=== PATIENT | female | born 1955 | race Caucasian/White ===

== ENCOUNTER → 2020-07-17 11:55 | Outpatient (BNVA) | payer MEDICARE, SELFPAY | PROVIDERS: Family Provider Family Medicine; Visit Provider Nurse Practitioner Family | DX: I10 Essential (primary) hypertension (principal); E78.5 Hyperlipidemia, unspecified; E55.9 Vitamin D deficiency, unspecified; Z79.899 Other long term (current) drug therapy | CPT/HCPCS: 80053; 80061; 81003; 82306; 83036; 84443; 85025 ==

== ENCOUNTER → 2021-12-13 08:32 | Outpatient (BNVA) | payer MEDICARE, SELFPAY | PROVIDERS: Family Provider Family Medicine; PCP Nurse Practitioner; Visit Provider Nurse Practitioner | DX: I10 Essential (primary) hypertension (principal); E78.5 Hyperlipidemia, unspecified | CPT/HCPCS: 80053; 80061; 84443; 85025 ==

== ENCOUNTER 2021-12-16 13:24 | Outpatient (CLI) | payer MEDICARE, SELFPAY ==
--- NOTE | 2021-12-16 13:29 | MM_ITS ---
WS: [id number] Bilateral screening 3D tomosynthesis digital mammogram, 12/16/2021 Clinical Data: Z12.39 - Encounter for other screening for malignant neop... Comparison: 09/14/2016, 01/07/2014, 08/02/2012, 04/14/2011, 02/22/2010, 02/04/2009, 08/02/2007. 06/16/2006. Findings: The breast parenchymal pattern shows fat replacement. No spiculated masses or clustered calcification s are seen. There are no secondary signs of carcinoma. MM/[place] [id number] Impression: 1. Negative bilateral mammogram unchanged. 2. Recommend annual screening mammograms. BIRADS: 1-Negative FOLLOW UP: 1 Year Follow-up The CAD price checker was used.
== END 2021-12-16 13:25 | disposition home or self-care (01) ==
LOC: RAD 13:25
PROVIDERS: Family Provider Family Medicine; PCP Nurse Practitioner; Visit Provider Nurse Practitioner
DX: Z12.31 Encounter for screening mammogram for malignant neoplasm of breast (principal)
CPT/HCPCS: 77063; 77067

== ENCOUNTER → 2021-12-27 10:41 | Outpatient (BNVA) | payer MEDICARE, SELFPAY | PROVIDERS: Family Provider Family Medicine; PCP Nurse Practitioner; Visit Provider Nurse Practitioner | DX: I10 Essential (primary) hypertension (principal) | CPT/HCPCS: 80053 ==

== ENCOUNTER 2023-01-14 23:03 | Emergency (ER) | payer MEDICARE, SELFPAY ==
[2023-01-14 23:05] VITALS: BP 152/64; PULSE 67; RESP 20; TEMP 37.1; O2SAT 95; BMI 32.9
--- NOTE | 2023-01-14 23:17 | ED_ITS ---
HPI - Back Pain/Injury General: Chief Complaint: Back Pain/Injury Stated Complaint: BACK PAIN Time Seen by Provider: 01/14/23 23:13 Source: patient and EMS Mode of arrival: EMS Limitations: no limitations History of Present Illness: 67-year-old female states that she is on a long car ride twice this week and states she went and picked up her grandchildren at [employer] and rode in a car started having some left back pain she states that today they drove and passed [place] she been in the car for 6 hours now having severe left lower back pain. She states she feels like she having a muscle spasm is much worse with movement and trying to walk states improved with laying flat she denies any radiation of pain denies any midline pain denies any injuries. 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 Patient is under the care of [facility] MRI ordered by provider RICK Hernandez Social History Smoking and tobacco status: never smoked Second hand smoke exposure: No Smoking risk assessment/counseling performed?: No Alcohol intake: never Desire information about alcohol rehabilitation?: No Counseling given: No Substance/Drug Use: never Desire information about substance/drug rehabilitation?: No Counseling given: No Physical Exam Const: COMMON NORMALS: no acute distress, patient oriented x3 and healthy appearing HENMT: COMMON NORMALS: normocephalic and atraumatic HEAD & SCALP: normocephalic and atraumatic Neck/C-Spine: COMMON NORMALS: full ROM and supple Chest: COMMONS NORMALS: normal inspection of the chest and normal palpation of entire chest wall Resp: COMMON NORMALS: normal respiratory effort, No retractions, No use of accessory muscles and clear to auscultation bilaterally AUSCULTATION: clear to auscultation bilaterally Cardio: COMMON NORMALS: regular rate, regular rhythm and No murmurs present (Cardio) RATE: regular rate RHYTHM: regular rhythm GI: COMMON NORMALS: Normal to inspection, nondistended, normoactive bowel sounds present, Soft to palpation, non-tender and no masses PALPATION: Yes Soft to palpation Back/Pelvis: OTHER: Tender to the left lower lumbar no midline tenderness she has pain with range of motion of her left leg distal pulses sensation intact Extremity: COMMON NORMALS: normal to inspection and full ROM Neuro: COMMON NORMALS: patient oriented x3, moves all extremities and no focal motor deficits Psych: COMMON NORMALS: mental status grossly normal, Normal thought process present and cooperative THOUGHT PROCESS: Normal thought process present Skin: COMMON NORMALS: no rashes or lesions noted and no wounds GENERAL SKIN EXAM: no rashes or lesions noted Course Vital Signs: Vital signs: Vital Signs Temperature 98.7 F 01/14/23 23:05 Pulse Rate 65 01/14/23 23:43 Respiratory Rate 18 01/14/23 23:43 Blood Pressure 132/69 01/14/23 23:43 Pulse Oximetry 96 01/14/23 23:43 Oxygen Delivery Me thod Room Air 01/14/23 23:43 MDM - Back Pain/Injury Medical Decision Making Patient presents here with back pain likely muscular in nature she has no midline pain did give her steroids pain meds she feels improved we will prescribe her muscle relaxants Naprosyn and hydrocodone for home she is to follow-up with PCP and return if worsening she understands agrees to plan. Medical Records I reviewed the patient's medical records. Labs I reviewed the patient's lab results. Discharge Plan Discharge Patient Disposition: Home Clinical Impression: Low back pain Condition: Stable Prescriptions: New hydrocodone-acetaminophen 5-325 mg tablet 1 tab PO Q6H PRN (Reason: pain) Qty: 14 0RF methocarbamol 750 mg tablet 750 mg PO Q6H PRN (Reason: spasms) Qty: 20 0RF Naprosyn 500 mg tablet 500 mg PO BID PRN (Reason: pain) Qty: 20 0RF No Action triamcinolone acetonide 0.1 % cream 1 applic topical DAILY clobetasol 0.05 % ointment 1 applic topical BID estradiol 0.01 % (0.1 mg/gram) cream 1 appful vaginal DAILY Rx Instructions: for 14 days mometasone 0.1 % solution 1 applic topical DAILY Qty: 60 3RF Rx Instructions: apply a few drops to scalp daily as needed for itch ketoconazole 2 % cream 1 applic topical BID Qty: 30 2RF Rx Instructions: To pink scaly areas in skin fold twice daily for 4 weeks to replace clotrimazole losartan 25 mg tablet See Rx Instructions .ROUTE .COMPLEX Qty: 30 0RF Dose Instruction: TAKE 1 TABLET BY MOUTH DAILY Rx Instructions: TAKE 1 TABLET BY MOUTH DAILY Discharge Orders: Discharge ED (Routine); Ordered 01/14/23 Ordered By: Feng Klein Referrals: Sadia Deras FNP [Primary Care Provider] - 1-3 days Discharge Diet: Advance as tolerated Discharge Activity: Resume usual activity Patient Instructions: Acute Low Back Pain (ED), Lower Back Exercises (ED), Opioid Safety Coding Level of Care Code ED Float Remover for Irene Martell
[2023-01-14] MEDS: HYDROmorphone 1 mg/mL INJ 1 mL 0.5 MG IVP (23:38)
[2023-01-14] MEDS: dexamethasone 10 mg/mL INJ IVP (23:38)
[2023-01-14] MEDS: ketorolac 30 mg/mL INJ 15 MG IVP (23:40)
[2023-01-14 23:43] VITALS: BP 132/69; PULSE 65; RESP 18; O2SAT 96
[2023-01-15 01:25] VITALS: BP 134/61; PULSE 68; RESP 16; O2SAT 97
== END 2023-01-15 00:41 | disposition home or self-care (01) ==
PROVIDERS: Emergency Provider Emergency Medicine; PCP Nurse Practitioner
DX: M54.50 Low back pain, unspecified (principal)
CPT/HCPCS: 96374; 96375; 99284; J1100; J1170; J1885

== ENCOUNTER 2023-04-08 13:27 | Emergency (ER) | payer MEDICARE, SELFPAY ==
[2023-04-08 13:45] VITALS: BP 194/83; PULSE 81; RESP 18; O2SAT 98
--- NOTE | 2023-04-08 14:03 | W.ED.BACK ---
HPI - Back Pain/Injury General: Chief Complaint: Back Pain/Injury Stated Complaint: back pain Time Seen by Provider: 04/08/23 13:49 History of Present Illness: Patient is a 67-year-old female with a past medical history significant for bradycardia, bronchitis, coronary artery disease, dizziness, hyperlipidemia, hypertension, and meningioma who presents to the emergency department for evaluation of left lumbar back pain. Patient reports that she has had intermittent lumbar back pain for approximately 3 months. Patient states that last night she had an exacerbation of her lumbar back pain. She currently rates her pain as a 9 out of 10 in severity that she describes as a sharp/stabbing sensation. Patient denies any trauma or event that could have elicited her symptoms. Patient reports that the pain is localized without radiation. Patient reports that she has hydrocodone and methocarbamol at home for management of symptoms. Patient reports that she took these medications with little relief of symptoms. She denies any numbness or tingling in her bilateral lower extremities, saddle anesthesia, fever, chills, history of IV drug abuse, or bowel or bladder incontinence. Patient does endorse mild dysuria but she denies hematuria. She denies abdominal pain, chest pain, shortness of breath, lightheadedness, dizziness, nausea, vomiting, constipation, diarrhea, melena, hematochezia, or any other associated symptoms. No other complaints at this time. Associated symptoms: Reports dysuria; Deny abdominal pain, chills, fever(s), nausea, syncope or vomiting Review of Systems General: Reports: 10 or more systems reviewed and unremarkable except in HPI and below Const: Denies: fever(s), chills, body aches or diaphoresis Eyes: Denies: change in vision or blurry vision ENMT: Denies: throat pain, ear or mastoid pain or nasal congestion Card: Denies: chest pain, palpitations, irregular heart rhythm, lightheadedness or syncope Resp: Denies: dyspnea, productive cough, non-productive cough or wheezing GI: Denies: abdominal pain, nausea or vomiting : Reports: dysuria; Denies: flank pain, difficulty voiding or urinary frequency Musc: Reports: back pain Skin/Breast: Denies: rash Neuro: Denies: numbness in extremities, weakness in extremities or dizziness Psych: Denies: anxiety or depression PFS ED PFSH: Medical History Bilateral carotid artery disease Bradycardia Bronchitis Coronary artery disease Dizziness Hyperlipidemia Hypertension Meningioma 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 Patient is under the care of [facility] MRI ordered by provider RICK Hernandez Social History Smoking and tobacco/nicotine status: never used tobacco/nicotine Second hand smoke exposure: No Alcohol intake: never Substance/Drug Use: never Physical Exam Const: COMMON NORMALS: no acute distress, patient oriented x3 and healthy appearing HENMT: COMMON NORMALS: normocephalic, atraumatic and oropharynx normal HEAD & SCALP: normocephalic and atraumatic Eye: COMMON NORMALS: Equal, round and reactive pupils present and EOMs intact bilaterally PUPIL: Yes Equal, round and reactive pupils present Neck/C-Spine: COMMON NORMALS: no JVD GENERAL: Yes normal visual inspection and Yes trachea midline Chest: COMMONS NORMALS: normal inspection of the chest Resp: COMMON NORMALS: normal respiratory effort, No retractions and No use of accessory muscles Cardio: COMMON NORMALS: no JVD, regular rate, regular rhythm, No gallops present (Cardio), No clicks present (Cardio), No murmurs present (Cardio), No rub (Cardio) and Peripheral pulses 2+ throughout RATE: regular rate RHYTHM: regular rhythm PERIPHERAL PULSES: Peripheral pulses 2+ throughout GI: COMMON NORMALS: Normal to inspection, nondistended, normoactive bowel sounds present, Soft to palpation and non-tender PALPATION: Yes Soft to palpation : BLADDER/KIDNEY EXAM: No CVA tenderness Back/Pelvis: GENERAL BACK: No CVA tenderness OTHER: Left lumbar back pain noted to palpation. No swelling, erythema, or ecchymosis appreciated to the affected area. No midline vertebral tenderness is noted to the thoracic or lumbar spine. No bony abnormalities or step-offs noted. Negative straight leg raise. Patient has full passive and active range of motion in the bilateral upper and lower extremities. Extremity: COMMON NORMALS: normal to inspection, full ROM and capillary refill normal Neuro: COMMON NORMALS: patient oriented x3 OTHER: Sensation intact in the bilateral upper and lower extremities. Course Vital Signs: Vital signs: Vital Signs Pulse Rate 81 04/08/23 13:45 Respiratory Rate 18 04/08/23 13:45 Blood Pressure 194/83 04/08/23 13:45 Pulse Oximetry 98 04/08/23 13:45 Oxygen Delivery Me thod Room Air 04/08/23 13:45 MDM - Back Pain/Injury Medical Decision Making Patient is a 67-year-old female with a past medical history significant for bradycardia, bronchitis, coronary artery disease, dizziness, hyperlipidemia, hypertension, and meningioma who presents to the emergency department for evaluation of left lumbar back pain. On physical examination patient is nontoxic and in no acute distress. Vital signs remained stable throughout the ED course. Patient is afebrile. Patient is neurovascularly intact. Patient denies saddle anesthesia, numbness or tingling in her bilateral lower extremities, bowel or bladder incontinence, fever, or history of IV drug abuse. X-ray of the lumbar back showed Chronic isthmic spondylolisthesis L5-S1 with secondary degenerative changes. No acute bony abnormalities. Urinalysis did show evidence of a urinary tract infection. Urine culture currently pending. Based off history and physical examination I do not believe the patient's symptoms are emergent and require further emergent evaluation at this time. Patient was given Toradol and Norflex in the emergency department for symptomatic relief. Patient stated improvement of symptoms after medication administration. See handouts of generalized instructions. A prescription of diclofenac Was sent to her pharmacy to be picked up. Take medication as prescribed. Do not take ibuprofen or other nonsteroidal anti-inflammatories while taking this medication. You are also noted to have a urinary tract infection. A prescription of ciprofloxacin was sent to your pharmacy be picked up. Take medication as prescribed. Avoid strenuous physical activity for the next several days that can exacerbate your symptoms. Call your primary care provider tomorrow with an update of your symptoms and to schedule appointment for further management/evaluation. Return to the emergency department for any rapid or worsening symptoms to include but not limited to numbness or tingling in your lower extremities, groin numbness, bowel or bladder incontinence, fever, or as needed. Patient stated understanding of all discharge instructions was agreeable to plan of care. Differential diagnosis includes but is not limited to cauda equina syndrome, discitis, spinal epidural abscess, lumbar back strain, lumbar back spasm, urinary tract infection Labs Radiology Impressions Lumbar Spine X-Ray 04/08/23 14:06 IMPRESSION: Chronic isthmic spondylolisthesis L5-S1 with secondary degenerative changes. No acute bony abnormalities. Laboratory Results Urine Color Yellow (Yellow) 04/08/23 14:49 Urine Appearance Sl hazy (CLEAR) A 04/08/23 14:49 Urine pH 5 (5-7) 04/08/23 14:49 Ur Specific [place] 1.020 (1.005-1.030) 04/08/23 14:49 Urine Protein Neg (Negative) 04/08/23 14:49 Urine Glucose (UA) Norm (Normal) 04/08/23 14:49 Urine Ketones Negative (Negative) 04/08/23 14:49 Urine Blood Neg (Negative) 04/08/23 14:49 Urine Nitrate Positive (Negative) H 04/08/23 14:49 Urine Bilirubin Neg (Negative) 04/08/23 14:49 Urine Urobilinogen Norm mg/dL (Negative) 04/08/23 14:49 Ur Leukocyte Esterase Negative (Negative) 04/08/23 14:49 Urine RBC None /hpf (0-2) 04/08/23 14:49 Urine WBC 5-10 /hpf (0-5) H 04/08/23 14:49 Ur Squamous Epith Cells Rare /hpf (0-5) 04/08/23 14:49 Amorphous Sediment Not Reportable 04/08/23 14:49 Urine Bacteria 3+ /hpf (NONE) H 04/08/23 14:49 All radiology interpretation(s) finalized by discharge Discharge Plan Discharge Patient Disposition: Home Clinical Impression: Acute UTI, Lumbar back pain Condition: Stable Prescriptions: New diclofenac sodium 75 mg tablet,delayed release (DR/EC) 75 mg PO BID 5 Days Qty: 10 0RF Cipro 500 mg tablet 500 mg PO Q12H 7 Days Qty: 14 0RF No Action clobetasol 0.05 % ointment 1 applic topical BID PRN (Reason: Rash) hydrocodone-acetaminophen 5-325 mg tablet 1 tab PO Q6H PRN (Reason: pain) Qty: 14 0RF methocarbamol 750 mg tablet 750 mg PO Q6H PRN (Reason: spasms) Qty: 20 0RF losartan 25 mg tablet 25 mg PO QAM Tylenol Arthritis 650 mg Tablet Extended Release 650 mg PO Q8H PRN (Reason: Pain) Discharge Orders: Discharge ED (Routine); Ordered 04/08/23 Ordered By: Guy Islas Referrals: Sadia Deras FNP [Primary Care Provider] - Patient Instructions: Urinary Tract Infection in Women (DC), Back Pain (ED) Activity Restrictions/Additional Instructions: See handouts of generalized instructions. A prescription of diclofenac Was sent to her pharmacy to be picked up. Take medication as prescribed. Do not take ibuprofen or other nonsteroidal anti-inflammatories while taking this medication. You are also noted to have a urinary tract infection. A prescription of ciprofloxacin was sent to your pharmacy be picked up. Take medication as prescribed. Avoid strenuous physical activity for the next several days that can exacerbate your symptoms. Call your primary care provider tomorrow with an update of your symptoms and to schedule appointment for further management/evaluation. Return to the emergency department for any rapid or worsening symptoms to include but not limited to numbness or tingling in your lower extremities, groin numbness, bowel or bladder incontinence, fever, or as needed. Coding Level of Care Code ED Wet Finisher Wool for Irene Martell
--- NOTE | 2023-04-08 14:06 | XRR_ITS ---
PROCEDURE INFORMATION: Exam: XR Lumbosacral Spine Exam date and time: 04/08/2023 2:18 PM Age: 67 years old Clinical indication: Low back pain; Additional info: Lumbar back pain TECHNIQUE: Imaging protocol: Radiologic exam of the lumbosacral spine. Views: 2 or 3 views. COMPARISON: No relevant prior studies available. FINDINGS: Limitations: Study is technically suboptimal due to body habitus. Bones/joints: There is grade 1 isthmic spondylolisthesis L5-S1 with rather advanced secondary degenerative disc and facet joint changes. Remainder of lumbar curvature alignment is unremarkable. There are mild-moderate degenerative changes involving the remainder of the lumbar spine. There are no compression fractures detected. Pedicles are intact. Soft tissues: Unremarkable. XR/XR lumbar spine 2-3V* [id number] IMPRESSION: Chronic isthmic spondylolisthesis L5-S1 with secondary degenerative changes. No acute bony abnormalities.
[2023-04-08] MEDS: orphenadrine 30 mg/mL Inj 2 mL 60 MG IM (14:36)
[2023-04-08] MEDS: ketorolac 30 mg/mL INJ IM (14:36)
[2023-04-08 15:59] LABS: Add Urine Microscopic? YES; Bilirubin Urine Neg (Negative); Blood Urine Neg (Negative); Glucose Urine UA Norm (Normal); Ketones Urine Negative (Negative); Leukocyte Esterase Urine Negative (Negative); Nitrate Urine Positive (Negative); Protein Urine Neg (Negative); Urine Appearance SL Hazy (CLEAR); Urine Color Yellow (Yellow); Urobilinogen Urine Norm (Negative); pH Urine 5 (5-7)
[2023-04-08 16:00] LABS: Add Urine Culture? Yes; Bacteria Urine 3+ /hpf; Squamous Epithelial Cell Urine RARE /hpf (0-5)
[2023-04-08] MEDS: ciprofloxacin 500 mg Tablet PO (17:26)
== END 2023-04-08 17:27 | disposition home or self-care (01) ==
PROVIDERS: Emergency Provider Physician Assistant; PCP Nurse Practitioner
DX: N39.0 Urinary tract infection, site not specified (principal); M54.50 Low back pain, unspecified; M43.17 Spondylolisthesis, lumbosacral region; I25.10 Atherosclerotic heart disease of native coronary artery without angina pectoris; E78.5 Hyperlipidemia, unspecified; I10 Essential (primary) hypertension
CPT/HCPCS: 72100; 81001; 87077; 87086; 87186; 96372; 99284; J1885; J2360

== ENCOUNTER 2023-04-20 16:04 | Outpatient (CLI) | payer MEDICARE, SELFPAY ==
--- NOTE | 2023-04-20 16:09 | XR_ITS ---
WS: [id number] Exam: XR cervical spine min 6V [id number] Date/Time of Exam: 04/20/2023 4:12 PM Reason For Exam: S16.1XXA - Strain of muscle, fascia and tendon at neck le... No acute fracture or dislocation. No flexion or extension instability identified. There is mild strai ghtening. Normal paraspinal soft tissue structures. Mild degenerative narrowing of the C4-5 and C5-6 discs. Mild spondylosis of the C4 and C5. The odontoid is intact. Posterior elements are unremarkable . Bony neural foramina appear to be patent. IMPRESSION: 1. No fracture or malalignment. No instability. 2. Mild degenerative changes.
--- NOTE | 2023-04-20 16:45 | MR_ITS ---
WS: [id number] MRI LUMBAR SPINE NONCONTRAST HISTORY: M54.16 - Radiculopathy, lumbar region COMPARISON: None available. TECHNIQUE: Sagittal and axial multisequence imaging is submitted. Mild curvature lumbar spine. Slight increase in the lower lordosis. L5 grade 1 anterolisthesis by 8.2 mm. Disc spaces are all mildly narrowed and desiccated. Fatty replacement of the marrow in the L3-4 endpl ates. No acute fracture or marrow edema. Conus terminates normally at L1-2 disc level. L1-L2: Diffuse annular disc bulge encroaching upon the subarticular recesses and ventral thecal sac. Mild encroachment upon the traversing L2 nerve roots. Mild bilateral foraminal narrowing. L2-L3: Mild asymmetric disc bulging. Shallow LEFT foraminal disc protrusion. Mild disc encroachment u ankit the subarticular recesses and the traversing L3 nerve roots. Mild subarticular recess and foramin al stenosis. L3-L4:Diffuse annular disc bulging LEFT foraminal disc protrusion with moderate ligamentum flavum and facet arthritis. Mild central, bilateral subarticular recess and bilateral foraminal stenosis. Disc encroachment upon the LEFT traversing L3 nerve root is the most significant. Small osteophytes in the RIGHT foramen contributing to the stenosis L4-L5: Diffuse annular disc bulging with a LEFT foraminal disc protrusion. Marked ligamentum flavum and facet arthritis. Mild central, bilateral subarticular recess and moderate LEFT LEFT foraminal st enosis. L5-S1: Diffuse annular disc bulging with mild osteophytic ridging and moderate facet arthritis. Most significant facet arthritis on the LEFT. There is mild disc contact on the S1 nerve roots. Moderate b ilateral foraminal stenosis, LEFT greater than RIGHT. Large Tarlov cysts posterior S1, S2 and S3. IMPRESSION: 1. L5 grade 1 anterolisthesis by 8.2 mm. 2. Multilevel facet joint arthritis and disc disease throughout the lumbar spine. 3. L1-2 and L2-3: Mild subarticular recess and foraminal stenosis. Mild encroachment upon the edwardo ing nerve roots. 4. L3-4: Mild central and bilateral subarticular recess and foraminal stenosis. Additional osteophyte s extend into the RIGHT foramen with slightly greater stenosis. 5. L4-5: Mild central, bilateral subarticular recess and moderate LEFT foraminal stenosis. 6. L5-S1: Moderate bilateral facet joint arthritis with moderate foraminal stenosis, LEFT greater yarelis n RIGHT.
== END 2023-04-20 16:05 | disposition home or self-care (01) ==
PROVIDERS: PCP Nurse Practitioner; Visit Provider Nurse Practitioner Family
DX: M54.16 Radiculopathy, lumbar region (principal); M50.321 Other cervical disc degeneration at C4-C5 level; M47.817 Spondylosis without myelopathy or radiculopathy, lumbosacral region; M48.07 Spinal stenosis, lumbosacral region; S16.1XXA Strain of muscle, fascia and tendon at neck level, initial encounter; X58.XXXA Exposure to other specified factors, initial encounter; M47.812 Spondylosis without myelopathy or radiculopathy, cervical region
CPT/HCPCS: 72052; 72148

== ENCOUNTER → 2023-05-01 11:22 | Outpatient (BNVA) | payer MEDICARE, SELFPAY | PROVIDERS: PCP Nurse Practitioner; Visit Provider Nurse Practitioner Family | DX: M50.30 Other cervical disc degeneration, unspecified cervical region (principal); M54.16 Radiculopathy, lumbar region; E55.9 Vitamin D deficiency, unspecified; E78.5 Hyperlipidemia, unspecified; I10 Essential (primary) hypertension; N39.0 Urinary tract infection, site not specified; Z79.899 Other long term (current) drug therapy | CPT/HCPCS: 80053; 80061; 81003; 82306; 83036; 84443; 85025 ==

== ENCOUNTER → 2023-07-14 14:42 | Outpatient (BNVA) | payer MEDICARE, SELFPAY | PROVIDERS: PCP Nurse Practitioner Family; Visit Provider Orthopaedic Surgery | DX: M43.17 Spondylolisthesis, lumbosacral region; M48.061 Spinal stenosis, lumbar region without neurogenic claudication; Z01.812 Encounter for preprocedural laboratory examination | CPT/HCPCS: 80053; 81001; 85025; 99204 ==

== ENCOUNTER 2024-04-16 08:18 | Outpatient (CLI) | payer MEDICARE, SELFPAY ==
--- NOTE | 2024-04-16 08:20 | MM_ITS ---
WS: [id number] BILATERAL 3D TOMOSYNTHESIS DIGITAL SCREENING MAMMOGRAM WITH CAD CLINICAL INFORMATION: SCREENING HISTORY: Screening mammogram. No current complaints. COMPARISON: 2021 TECHNIQUE: Bilateral CC and MLO views. FINDINGS: Fatty-replaced breasts bilaterally. No suspicious focal mass, asymmetry, calcifications, or architectural model maker ural distortion. No evidence of malignancy. Punctate and lucent centered calcifications. Skin calcifi cations. MM/MM scr tomosynthesis [id number] IMPRESSION: DENSITY: The breasts are almost entirely fatty. BI-RADS: 2 - Benign. FOLLOW UP: 1 Year Follow-up Recommend return to annual screening mammography.
== END 2024-04-16 08:19 | disposition home or self-care (01) ==
LOC: RAD 08:19
PROVIDERS: PCP Nurse Practitioner Family; Visit Provider Nurse Practitioner Family
DX: Z12.31 Encounter for screening mammogram for malignant neoplasm of breast (principal); R92.313 Mammographic fatty tissue density, bilateral breasts; R92.1 Mammographic calcification found on diagnostic imaging of breast
CPT/HCPCS: 77063; 77067

== ENCOUNTER 2025-04-30 08:52 | Outpatient (RCR) | payer MEDICARE, SELFPAY | END 2025-05-04 23:59 | disposition home or self-care (01) | LOC: WPT 08:52 | PROVIDERS: Visit Provider Neurological Surgery | DX: M47.896 Other spondylosis, lumbar region (principal); M48.062 Spinal stenosis, lumbar region with neurogenic claudication; M54.16 Radiculopathy, lumbar region; M47.816 Spondylosis without myelopathy or radiculopathy, lumbar region | CPT/HCPCS: 97110; 97112; 97162; 97530 ==